=== PATIENT | female | born 1980 | race Two or more races ===

== ENCOUNTER 2025-04-04 00:34 | Emergency (ER) | payer OTHER ==
[~2025-04-04] VITALS: Ht 170.2 cm; Wt 72.6 kg
[2025-04-04] MEDS: OLANZAPINE 10 MG VIAL IM ONE (00:51)
[2025-04-04] MEDS ORDERED: OLANZAPINE 10 MG VIAL IM ONE (00:51)
[2025-04-04 01:17] VITALS: BP 139/82; O2SAT 99
== END 2025-04-04 01:17 ==
LOC: ER 00:35
DX: Z02.89 Encounter for other administrative examinations (principal)
CPT/HCPCS: 99283; 96372; J3490